=== PATIENT | male | born 1990 | race Caucasian/White ===

== ENCOUNTER 2019-01-11 18:08 | Emergency (ER) | payer OTHER ==
[2019-01-11 18:51] VITALS: BP 148/75
[2019-01-11] MEDS ORDERED: Tetan/Diph/Pertus SYR(Tdap)* 0.5 ML SYR(BOOSTRIX) use SYR IM ONE (19:09)
--- NOTE | 2019-01-11 19:10 | UC ---
Skin Complaint HPI - HPI Summary HPI Summary: Pt states he picked a scab on lis left elbow a few days ago and it started to become red and swollen, however it has improved since yesterday. - History of Current Complaint Chief Complaint: UCSkin Time Seen by Provider: 01/11/19 18:54 Stated Complaint: LT ARM SKIN COMPLAINT Hx Obtained From: Patient Onset/Duration: Gradual Onset Skin Exposure Onset/Duration: Days Ago Timing: Constant Onset Severity: Moderate Current Severity: Mild Pain Intensity: 1 Location: Other - Left elbow Character: Swelling, Redness, Painful - Pain has improved dramatically since yesterday and pt now has full ROM Aggravating Factor(s): Nothing Alleviating Factor(s): Nothing Associated Signs & Symptoms: Positive: Negative - Allergy/Home Medications Allergies/Adverse Reactions: Allergies Allergy/AdvReac Type Severity Reaction Status Date / Time No Known Allergies Allergy Verified 01/11/19 18:41 Home Medications: Home Medications Ibuprofen TAB* [Advil TAB*] 200 mg PO ONCE PRN 01/11/19 [History Confirmed 01/11] PMH/Surg Hx/FS Hx/Imm Hx - Additional Past Medical History Additional PMH: Pt denies drug use or injections Previously Healthy: Yes - Surgical History Surgical History: Yes Surgery Procedure, Year, and Place: left ankle mass age 15yrs, tongue tie release - Family History Known Family History: Positive: None - Social History Alcohol Use: Weekly Alcohol Amount: 2-7 Substance Use Type: Marijuana Substance Use Comment - Amount & Last Used: end of November 2018 Smoking Status (MU): Current Some Day Smoker Type: Smokeless Tobacco Length of Time of Smoking/Using Tobacco: 2-3 times daily - Immunization History Most Recent Tetanus Shot: About 2009, before college Review of Systems All Other Systems Reviewed And Are Negative: Yes Skin: Positive: Other - Redness and swelling to left elbow for the past few days after picking a scab which he describes as a small pustule. He thinks he had an insect bite there as well. Motor: Positive: Negative, Decreased ROM - Pt had decreased ROM the past few days but normal today. Neurovascular: Positive: Negative Musculoskeletal: Positive: Negative Neurological: Positive: Negative Is Patient Immunocompromised?: No Physical Exam Triage Information Reviewed: Yes Appearance: Well-Appearing, No Pain Distress, Well-Nourished Vital Signs: Initial Vital Signs Temp 98.8 F 01/11/19 18:43 Pulse 67 01/11/19 18:43 Resp 15 01/11/19 18:43 BP 148/75 01/11/19 18:43 Pulse Ox 100 01/11/19 18:43 Vital Signs Reviewed: Yes Musculoskeletal Exam: Normal Musculoskeletal: Positive: Strength Intact, ROM Intact Neurological: Positive: Alert, Muscle Tone Normal Psychological Exam: Normal Psychological: Positive: Normal Response To Family Skin: Positive: Other - Left elbow with redness more consistent with a local skin reaction to an insect bite. Proximal edges marked and measures 15 cm X 17 cm Course/Dx - Course Course Of Treatment: I believe this is more a local skin reaction to an insect bite. The pt is going to apply warm, moist compresses to the area 4-6 times a day for 20 minutes each time and if it is worse by 1500 tomorrow, then he is going to fill the antibiotic RX. - Diagnoses Provider Diagnosis: Cellulitis, Insect bite Discharge - Sign-Out/Discharge Documenting (check all that apply): Patient Departure All imaging exams completed and their final reports reviewed: No Studies - Discharge Plan Condition: Fair Disposition: HOME Prescriptions: Amoxicillin/Clavulanate TAB* [Augmentin TAB 875*] 875 mg PO BID 10 Days #20 tab Patient Education Materials: Cellulitis (DC) Referrals: Adi Garcia DO [Primary Care Provider] - Additional Instructions: Warm, moist compresses to area 4-6 times a day for 20 minutes each time. If the area is worse tomorrow at 1500, then start the antibiotic and take for 10 days. - Billing Disposition and Condition Condition: FAIR Disposition: Home
== END 2019-01-11 19:38 | disposition home or self-care (01) ==
LOC: UCCORT 18:08
DX: S50.362A Insect bite (nonvenomous) of left elbow, initial encounter (principal); L03.114 Cellulitis of left upper limb; W57.XXXA Bitten or stung by nonvenomous insect and other nonvenomous arthropods, initial encounter; F17.290 Nicotine dependence, other tobacco product, uncomplicated
CPT/HCPCS: 90471; 90715; 99202; G0463

== ENCOUNTER 2019-05-02 18:04 | Emergency (ER) | payer OTHER ==
[2019-05-02] MEDS ORDERED: Tetan/Diph/Pertus SYR(Tdap)* 0.5 ML SYR(BOOSTRIX) use SYR IM ONE (18:06)
[2019-05-02 18:28] VITALS: BP 148/76
--- NOTE | 2019-05-02 18:46 | UC ---
Minor Trauma HPI - HPI Summary HPI Summary: [place] and hit his colmenares on a rock. Tetanus UTD. - History of Current Complaint Chief Complaint: UCWounds Stated Complaint: RT LEG PUNCTURE WOUND Hx Obtained From: Patient Onset/Duration: Sudden Onset, Lasting Hours - 13, Still Present Onset Of Pain: Immediate Severity Initially: Moderate Severity Currently: Mild Pain Intensity: 1 Mechanism Of Injury: Blunt Trauma - fell on a rock Aggravating Factor(s): Ambulation Alleviating Factor(s): Nothing - Allergies/Home Medications Allergies/Adverse Reactions: Allergies Allergy/AdvReac Type Severity Reaction Status Date / Time No Known Allergies Allergy Verified 05/02/19 18:28 Home Medications: Home Medications NK [No Home Medications Reported] 05/02/19 [History Confirmed 05/02/19] PMH/Surg Hx/FS Hx/Imm Hx Previously Healthy: Yes - Surgical History Surgical History: Yes Surgery Procedure, Year, and Place: left ankle mass age 15yrs, tongue tie release - Family History Known Family History: Positive: None Negative: Cardiac Disease - Social History Occupation: Employed Full-time Lives: Alone Alcohol Use: Weekly Alcohol Amount: 2-7 Substance Use Type: Marijuana Substance Use Comment - Amount & Last Used: end of November 2018 Smoking Status (MU): Current Some Day Smoker Type: Smokeless Tobacco Length of Time of Smoking/Using Tobacco: 2-3 times daily - Immunization History Most Recent Tetanus Shot: January 11, 2019 Review of Systems All Other Systems Reviewed And Are Negative: Yes Skin: Positive: Other - abrasion right lower leg Physical Exam Triage Information Reviewed: Yes Appearance: Well-Appearing, No Pain Distress, Well-Nourished Vital Signs: Initial Vital Signs Temp 98.7 F 05/02/19 18:23 Pulse 72 05/02/19 18:23 Resp 15 05/02/19 18:23 BP 148/76 05/02/19 18:23 Pulse Ox 98 05/02/19 18:23 Vital Signs Reviewed: Yes Eyes: Positive: Conjunctiva Clear Neck exam: Normal Respiratory Exam: Normal Cardiovascular Exam: Normal Musculoskeletal Exam: Normal Neurological Exam: Normal Skin: Positive: Other - abrasion right upper colmenares with tibia tenderness under the abrasion. Minor Trauma Course/Dx - Differential Dx/Diagnosis Differential Diagnosis/HQI/PQRI: Abrasion(s), Contusion(s), Fracture, Laceration (s) Provider Diagnosis: Contusion of right lower leg, initial encounter, Abrasion, right lower leg, initial encounter Discharge - Sign-Out/Discharge Documenting (check all that apply): Patient Departure All imaging exams completed and their final reports reviewed: No Studies - Discharge Plan Condition: Stable Disposition: HOME Patient Education Materials: Abrasion (ED), Contusion in Adults (ED) Referrals: Adi Garcia DO [Primary Care Provider] - Additional Instructions: Use ice for 48 hours and then heat. Antibiotic ointment over the wound will speed healing. Yellow green discharge is normal. Watch for infection with spreading redness. - Billing Disposition and Condition Condition: STABLE Disposition: Home
== END 2019-05-02 18:59 | disposition home or self-care (01) ==
LOC: UCCORT 18:04
DX: S80.811A Abrasion, right lower leg, initial encounter (principal); W01.198A Fall on same level from slipping, tripping and stumbling with subsequent striking against other object, initial encounter; Y92.828 Other wilderness area as the place of occurrence of the external cause; F17.290 Nicotine dependence, other tobacco product, uncomplicated
CPT/HCPCS: 99211; G0463